=== PATIENT | female | born 1945 | race Caucasian/White ===

== ENCOUNTER → 2016-08-08 | Outpatient (CLI) | payer OTHER ==
[~2016-08-08] VITALS: Ht 147.3 cm; Wt 85.0 kg
[~2016-08-08] MED LIST: ADVAIR 250-501 EACH IH; ALLEGRA ALLERG180 MG PO; AMLODIPINE BESY10 MG PO; ASPIRIN CHEWABL81 M1 PO; CENTRUM COMPLE1 EACH PO; CHLORZOXAZONE500 MG PO; ESCITALOPRAM OX10 MG PO; FOSINOPRIL-HCT1 EAC1 PO; LISINOPRIL40 MG PO; OMEPRAZOLE20 M3 PO; PRAVACHOL40 M1 PO; PROBIOTIC1 EAC1 PO; ST. JOSEPH ASPI81 MG PO; TYLENOL WITH C1 EACH PO
[2016-08-08 08:52] VITALS: BP 168/78
== END | disposition home or self-care (01) ==
LOC: IVINF 08-01 15:00
DX: M81.0 Age-related osteoporosis without current pathological fracture (principal)
CPT/HCPCS: 96365; J3489

== ENCOUNTER → 2017-07-18 | Outpatient (CLI) | payer OTHER | END | disposition home or self-care (01) | LOC: RAD 09:00 | DX: I69.391 Dysphagia following cerebral infarction (principal); R13.12 Dysphagia, oropharyngeal phase; K21.9 Gastro-esophageal reflux disease without esophagitis | CPT/HCPCS: 74230; 92611 GN; G8996 GN CI; G8997 GN CI; G8998 GN CI ==